=== PATIENT | female | born 1975 ===

== ENCOUNTER 2018-10-12 07:30 | Inpatient (IN) | payer OTHER ==
[~2018-10-12] VITALS: Ht 149.9 cm; Wt 3.2 kg
[~2018-10-12 07:30] MED LIST: IRON 100 PLUS1 EACH PO; PERCOCET 5-3251 EACH PO; PRENATAL MULTI1 EAC3 PO; PRENATAL TABLE1 EAC4 PO
[2018-10-15] MEDS ORDERED: PRENATAL PLUS1 EAC2 PO (06:20)
== END 2018-10-17 13:06 | DRG 788 ==
LOC: OB/GYN 10-15 05:43 → O/R 10-15 05:43 → OB/GYN 10-15 07:00
PROVIDERS: ADMIT Specialist
PROC: 4A1HXCZ Monitoring of Products of Conception, Cardiac Rate, External Approach (ICD-10-PCS; 2018-10-15)
PROC: 10D00Z1 Extraction of Products of Conception, Low, Open Approach (ICD-10-PCS; principal; 2018-10-15 07:00)
DX: O34.211 Maternal care for low transverse scar from previous cesarean delivery (principal); O75.82 Onset (spontaneous) of labor after 37 completed weeks of gestation but before 39 completed weeks gestation, with delivery by (planned) cesarean section; Z22.330 Carrier of Group B streptococcus; O34.13 Maternal care for benign tumor of corpus uteri, third trimester; D25.9 Leiomyoma of uterus, unspecified; Z3A.38 38 weeks gestation of pregnancy; Z37.0 Single live birth